=== PATIENT | male | born 1990 | race Caucasian/White ===

== ENCOUNTER → 2023-05-17 07:07 | Outpatient (REF) | payer BC, SELFPAY ==
[2023-05-17 07:42] LABS: % Eosinophils 3.5 % (0-6); % Immature Granulocytes 0.3 % (0-0.5); % Lymphocytes 31.1 % (20.5-51.1); % Monocytes 8.6 % (1.7-9.3); % Neutrophils 55.5 % (42.2-75.2); Absolute Basophils 0.1 10^3/uL (0-0.2); Absolute Eosinophils 0.3 10^3/uL (0-0.7); Absolute Lymphocytes 2.2 10^3/uL (1.2-3.4); Absolute Monocytes 0.6 10^3/uL (0.1-0.6); Absolute Neutrophils 3.9 10^3/uL (1.4-6.5); Hematocrit 43.2 % (39.0-52.0); Hemoglobin 14.9 g/dL (13.0-18.0); Mean Corp Hgb Conc. 34.5 g/dL (33.0-37.0); Mean Corpuscular Volume 84.2 fL (80.0-94.0); Mean Platelet Volume 10.6 fL (7.4-10.4); Nucleated Red Blood Cells % 0 % (-); Platelet Count 224 10^3/uL (130-400); Red Blood Cell Count 5.13 10^6/uL (4.70-6.10); Red Cell Dist. Width 12.6 % (11.5-14.5); White Blood Cell Count 7.1 10^3/uL (4.8-10.8)
[2023-05-17 10:50] LABS: ALT (SGPT) 23 U/L (0-50); AST (SGOT) 25 U/L (17-59); Albumin 4.1 g/dl (3.5-5.0); Alkaline Phosphatase 52 U/L (38-126); Blood Urea Nitrogen 17 mg/dl (9-20); Calcium 9.7 mg/dl (8.4-10.2); Carbon Dioxide 25 mmol/L (22-30); Chloride 103 mmol/L (98-107); Glucose 100 mg/dl (70-99); HDL Cholesterol 68 mg/dl; LDL Cholesterol, Calculated 75 mg/dl; Potassium 4.3 mmol/L (3.5-5.1); Sodium 139 mmol/L (135-145); Total Bilirubin 0.8 mg/dl (0.2-1.3); Total Cholesterol 162 mg/dl (50-199); Triglyceride 95 mg/dl (10-149); Very Low Density Lipoprotein 19 mg/dl (0-30); eGFR > 60.00
== END ==
LOC: REG 07:07
PROVIDERS: ATTENDING PHYSICIAN Family Medicine
DX: Z00.00 Encounter for general adult medical examination without abnormal findings (principal); Z13.0 Encounter for screening for diseases of the blood and blood-forming organs and certain disorders involving the immune mechanism; Z13.220 Encounter for screening for lipoid disorders
CPT/HCPCS: 36415; 80053; 80061; 85025

== ENCOUNTER 2024-01-06 22:14 | Inpatient (IN) | payer BC, SELFPAY ==
[2024-01-06 16:20] VITALS: BP 167/88
[2024-01-06 16:49] LABS: % Basophils 0.6 % (0-2); % Eosinophils 1.8 % (0-6); % Immature Granulocytes 0.3 % (0-0.5); % Lymphocytes 16.2 % (20.5-51.1); % Monocytes 9.4 % (1.7-9.3); % Neutrophils 71.7 % (42.2-75.2); Absolute Basophils 0.1 10^3/uL (0-0.2); Absolute Eosinophils 0.2 10^3/uL (0-0.7); Absolute Lymphocytes 1.5 10^3/uL (1.2-3.4); Absolute Monocytes 0.8 10^3/uL (0.1-0.6); Absolute Neutrophils 6.4 10^3/uL (1.4-6.5); Hematocrit 40.1 % (39.0-52.0); Hemoglobin 13.7 g/dL (13.0-18.0); Mean Corp Hgb Conc. 34.2 g/dL (33.0-37.0); Mean Corpuscular Hgb 28.5 pg (27.0-31.0); Mean Corpuscular Volume 83.4 fL (80.0-94.0); Mean Platelet Volume 10.5 fL (7.4-10.4); Nucleated Red Blood Cells % 0 % (-); Platelet Count 202 10^3/uL (130-400); Red Blood Cell Count 4.81 10^6/uL (4.70-6.10); Red Cell Dist. Width 12.7 % (11.5-14.5); White Blood Cell Count 8.9 10^3/uL (4.8-10.8)
[2024-01-06 16:50] LABS: Urine Albumin 1+ (Neg - Trace); Urine Bilirubin Negative (Negative); Urine Character Clear (Clear); Urine Color Yellow; Urine Glucose Negative (Negative); Urine Ketone Negative (Negative); Urine Leukocyte Negative (Negative); Urine Nitrite Negative (Negative); Urine Occult Blood 1+ (Negative); Urine Urobilinogen Negative (Neg - 1+)
[2024-01-06 16:58] LABS: ALT (SGPT) 25 U/L (0-50); AST (SGOT) 23 U/L (17-59); Albumin 4.5 g/dl (3.5-5.0); Alkaline Phosphatase 59 U/L (38-126); Blood Urea Nitrogen 42 mg/dl (9-20); Calcium 9.2 mg/dl (8.4-10.2); Carbon Dioxide 21 mmol/L (22-30); Chloride 107 mmol/L (98-107); Glucose 98 mg/dl (70-99); Potassium 4.1 mmol/L (3.5-5.1); Sodium 142 mmol/L (135-145); Total Bilirubin 0.5 mg/dl (0.2-1.3); Total Protein 7.2 g/dl (6.3-8.2); eGFR 26.93
--- NOTE | 2024-01-06 17:14 | ED.GENMED ---
History of Present Illness
General
Chief Complaint: Back Pain
Source: patient
Exam Limitations: none
Time Seen by Provider: 01/06/24 17:05
History of Present Illness
History of Present Illness:
See MDM
Past History
Past History
ED Past Medical History: None
ED Past Surgical History: None
Social History
Tobacco: Non-smoker
Alcohol: None
Phy Exam
Physical Exam
Physical Exam:
See MDM
Course
Orders/Labs/Results
Orders:
Orders
01/06/24 16:33
CMP [Comprehensive Metabolic Panel] Urgent
Complete Blood Count/With Diff Urgent
Creatine Phosphokinase Urgent
Comment: ADD ON
Urinalysis Reflex To Culture Urgent
Date Specimen was Collected: 01/06/24
Time Specimen was Collected: 16:25
Urine Microscopic Reflex Cult Urgent
01/06/24 17:13
Add On- LAB Urgent
Tests Added?: CPK
0.9% Sodium Chloride 1000 ml [Nss] 1,000 ml IV BOLUS
01/06/24 17:14
CT Abd/pel Without Iv Or Oral Urgent
Comment:
Reason For Exam: b/l flank pain
Abnormal Lab Results
01/06/24
16:33
MPV 10.5 H fL
(7.4-10.4)
Absolute Monos (auto) 0.8 H 10^3/uL
(0.1-0.6)
Lymphocytes % 16.2 L %
(20.5-51.1)
Monocytes % 9.4 H %
(1.7-9.3)
Carbon Dioxide 21 L mmol/L
(22-30)
BUN 42 H mg/dl
(9-20)
Creatinine 3.0 H mg/dL
(0.7-1.3)
Ur Occult Blood Reflex 1+ A
(Negative)
Urine RBC 7-10 A /HPF
(0-2)
Urine Bacteria (Reflex) Few A
(Negative)
Urine Albumin (Reflex) 1+ A
(Neg - Trace)
01/06/24 16:33
01/06/24 16:33
Vital Signs
Initial and Last Documented VS:
Initial Vital Signs
Temp Pulse Resp BP Pulse Ox
98.0 F 72 18 167/88 100
01/06/24 16:20 01/06/24 16:20 01/06/24 16:20 01/06/24 16:20 01/06/24 16:20
Last Documented Vital Signs
Temp Pulse Resp BP Pulse Ox
98.0 F 72 18 154/79 98
01/06/24 16:20 01/06/24 16:20 01/06/24 16:20 01/06/24 19:00 01/06/24 19:00
MDM/Problems Addressed
Differential Diagnosis Includes:
HPI and MDM Narrative:
33-year-old male presenting with bilateral lower back pain for the past week or so. 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 He has been doing stretches at home with no real relief. Patient has noticed that the water in
the toilet when he urinates has more bubbles in it. He denies any bubbling of his urine as it is coming out of his penis. He denies fevers or pain with urination.
On exam, patient does have mild muscle tenderness to his bilateral lumbar sacral area. No rash or skin changes noted. I discussed my concern with his blood work indicating elevated creatinine. Upon further questioning, patient did have increased
physical exercise recently and he has been more thirsty than normal. We discussed the likelihood of rhabdomyolysis. He does have mild hematuria but this is likely haptoglobin. Will obtain CT stone search and will start IV fluids and obtain CPK
Physical exam
General: Well appearing and non-toxic
HEENT: protecting airway
Neck: appears supple
CV: No evidence of cyanosis
Resp: No accessory muscle use
Abd: Non-distended. No significant abdominal tenderness
Back: Mild lumbosacral tenderness bilaterally
Extremities: No deformities
Neuro: alert
Psych: Normal affect
Skin: Intact
Problems Addressed including Acute and Chronic Conditions affecting care:
1. Low back pain
Acuity: acute
Prognosis: stable
Details: Given the elevated creatinine, likely in the setting of rhabdomyolysis. Will add on CPK and start IV fluids
Updates
6:10 PM I updated the patient in regards to her normal CPK. Will continue with plan with CT to rule out bilateral obstructing kidney stones
CT negative for obstructive uropathy. Given the lab abnormalities, will continue IV fluids and admit
Differential Diagnosis (but not limited to): Kidney stone, rhabdomyolysis, muscle strain
Testing considered: CT with IV contrast but GFR is low
Drug therapy (if applicable): OTC meds, please see d/c instruction regarding Rx drugs
Amount and/or Complexity of Data Reviewed
Clinical info obtained from: Patient
External data reviewed: N/A
Labs I independently reviewed (but not limited to): elevated creatinine
Radiology: The CT scan was personally and independently reviewed. In addition, official CT report reviewed.
Pulse Ox: not hypoxic
EKG independently reviewed: N/A
Credit Officer: N/A
Critical Care: N/A
Risk of Complication:
Social Determinants of health: Good social support
Discussed with other providers: Hospitalist
Escalation of Care includes Admit/Obs: Given the lab abnormalities, will continue IV fluids and admit
Occasional wrong word or 'sound a like' substitutions may have occurred due to the inherent limitations of voice recognition software. Read the chart carefully and recognize, using context, where substitutions have occurred.
*Critical Care Note
Total Time (30-74mins, 75-104mins- exclusive of procedures): Not Applicable
ED Attending Note
-
Portions of this chart may have been created with voice recognition software.� Occasional wrong word or��sound alike� substitutions may have occurred due to the inherent limitations of voice recognition software.
Discharge Plan
Departure
Patient Disposition: Admit
Date of Disposition: 01/06/24
Time of Disposition: 19:41
Admit to: Med/Surg
Presentation/result/management discussed w/ accepting MD/DO: Hospitalist
Discharge Problem:
Hematuria, Creatinine elevation
Referrals:
Mela Musa MD [Family Provider] -
Interventions
Interventions:
*Risk Screen - Suicide Last Done: 01/06/24 16:24
*General Assessment Last Done: 01/06/24 17:25
*Neglect/Abuse Screening Last Done: 01/06/24 16:24
*ED COVID-19 Vaccine History Last Done: 01/06/24 17:22
ED-Musculoskeletal Assessment Last Done: 01/06/24 17:31
Discharge Date and Time
Print Language: KINYARWANDA
[2024-01-06] MEDS: NSS 1000 IV ×2 (17:27→22:54)
[2024-01-06 17:28] LABS: Creatine Phosphokinase 106 U/L (55-170)
[2024-01-06 17:30] VITALS: BP 164/80
[2024-01-06 17:38] LABS: Urine Bacteria Few (Negative); Urine Mucus Few
[2024-01-06 18:00] VITALS: BP 162/82
[2024-01-06 19:00] VITALS: BP 154/79
--- NOTE | 2024-01-06 20:18 | HPS.HSE ---
Family Physician
-
Family Physician: Mela Musa MD
Chief Complaint
-
Back Pain
History of Present Illness
Patient is a 33y M with PMH significant for GERD who presents to ED complaining of back pain. Patient states that he started with pain in the mid back - bilaterally - about 6 days ago. No specific injury or trauma. He is very active. Works as
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 He felt that his discomfort was musculoskeletal and used heat, NSAIDs, rest, etc in attempt to improve without success. He noted development of mild nausea and 'frothy'
appearing urine. No bloody urine, fevers / chills. He denies dysuria or frequency.
Patient states that he has been taking ibuprofen 600mg about 3 times daily for the past several days.
He denies any other new medications, supplements, etc. No new exercise regimens, physical activity, etc.
Patient denies any prior history of similar symptoms.
Patient states that his son was recently ill with double-ill infection. He himself has had no recent URI / cold symptoms. No other known sick contacts.
Medical History
Past Medical History
Past Medical History: Reports Other
Additional Past Medical History:
GERD
Depression
Past Surgical History: Reports Other
Additional Past Surgical History:
T&A
Social History
Tobacco: Non-smoker
Alcohol: None
Drug: None
Family History
Family History: Other (Mother: Breast Cancer Father: HTN PGF: Prostate Cancer)
Allergies / Home Medications
Allergies reflects when Allergies were last updated in [facility].
Home Medications with original date entered in [facility]
Allergy/Medication List:
Allergies
Allergy/AdvReac Type Severity Reaction Status Date / Time
[facility]faclor [[facility] Allergy Unknown Unknown Verified 01/06/24 16:21
sulfamethoxazole Allergy Unknown Unknown Verified 01/06/24 16:21
[From Bactrim]
trimethoprim [From Bactrim] Allergy Unknown Unknown Verified 01/06/24 16:21
Home Medications
omeprazole 20 mg capsule,delayed release 20 mg PO DAILY 01/06/24
sertraline 25 mg tablet 25 mg PO DAILY 01/06/24
Review of Systems
-
History Source: Patient
A 12 point ROS was completed and negative except as noted: Yes
Constitutional: Denies Fever, Fatigue or Chills
EENT: Denies Sore Throat
Respiratory: Denies Cough or Trouble Breathing
Cardiac: Denies Chest Pain or Palpitations
Abdomen/GI: Reports Abdominal Pain and Nausea; Denies Vomiting, Diarrhea, Constipated, Bloody Stools, Black Stools or Anorexia
: Reports Flank Pain (bilateral) and Other (Frothy urine); Denies Dysuria, Frequency, Incontinence, Difficulty Voiding or Bleeding
Musculoskeletal: Reports Other (Back Pain); Denies Joint Pain
Neurological: Denies Dizzy, Headache, Weakness or Numbness
Psych: Denies Depression or Anxiety
Physical Exam
Vital Signs
Vital Signs
Temp Pulse Resp BP Pulse Ox
98.0 F 72 18 154/79 98
01/06/24 16:20 01/06/24 16:20 01/06/24 16:20 01/06/24 19:00 01/06/24 19:00
Physical Exam
General: Other (33y M in no acute distress.)
HEENT: Moist mucous membranes
Respiratory: Clear; No Wheezes, Rales or Rhonchi
Cardiac: S1/S2 and Regular Rhythm; No Murmur
GI: Soft, Non Tender, Non Distended and Normal Bowel Sounds
Musculoskeletal: No Clubbing, No Cyanosis, No Edema and Other (Mild bilateral CVAT. No tenderness over spine. No significant tenderness / spasm appreciated over paraspinal columns.)
Neuro: AO x 3
Laboratory Results
-
01/06/24 16:33
01/06/24 16:33
Laboratory Results
Total Bilirubin 0.5 mg/dl (0.2-1.3) 01/06/24 16:33
AST 23 U/L (17-59) 01/06/24 16:33
ALT 25 U/L (0-50) 01/06/24 16:33
Alkaline Phosphatase 59 U/L (38-126) 01/06/24 16:33
Impression/Plan
-
A/P: Patient is a 33y M with PMH significant for GERD who presents to ED complaining of back pain x 6 days.
ЮЛИЯ
- Admit for further evaluation and treatment.
- SCr = 3 compared to known baseline of 0.9.
- CT without evidence of stone, obstruction, pyelo, etc.
- UA with only minimal RBCs. CPK level normal.
- Tenderness is bilateral and seems muscular in origin.
- LDH is normal making vascular insult unlikely.
- Suspect ЮЛИЯ secondary to NSAID use x several days.
- Hold further ibuprofen.
- IVFs overnight.
- Follow for improvement in renal function.
- Nephrology evaluation if no improvement in SCr.
Back Pain
- Seems muscular in nature given location, duration, etc.
- Hold further NSAIDs.
- Application of heat, stretching, etc.
- Monitor for any new / worsening symptoms.
GERD
- Stable. Hold PPI for now given ЮЛИЯ.
Depression
- Stable. Continue sertraline.
DVT Prophylaxis: Subcut Heparin
Code Status: Full
[2024-01-06 20:36] LABS: LDH 158 U/L (120-246)
[2024-01-06 22:23] VITALS: BP 167/85; BMI 30.1
--- NOTE | 2024-01-06 23:38 | PTCARENOTE ---
Pt admitted to [facility] from ED via stretcher at approximately 2230. Pt was able to ambulate into room. Pt AAOx3. VSS. Pt oriented to unit and call pierce within reach.
[2024-01-07 05:07] LABS: Hemoglobin 12.6 g/dL (13.0-18.0); Mean Corp Hgb Conc. 34.1 g/dL (33.0-37.0); Mean Corpuscular Hgb 29.6 pg (27.0-31.0); Mean Corpuscular Volume 87.1 fL (80.0-94.0); Platelet Count 160 10^3/uL (130-400); Red Blood Cell Count 4.25 10^6/uL (4.70-6.10); Red Cell Dist. Width 12.7 % (11.5-14.5); White Blood Cell Count 6.4 10^3/uL (4.8-10.8)
[2024-01-07 05:09] LABS: Blood Urea Nitrogen 37 mg/dl (9-20); Calcium 9.1 mg/dl (8.4-10.2); Carbon Dioxide 21 mmol/L (22-30); Chloride 112 mmol/L (98-107); Estimated Creatinine Clearance 42 ml/min; Glucose 103 mg/dl (70-99); Potassium 4.9 mmol/L (3.5-5.1); Sodium 143 mmol/L (135-145); eGFR 29.26
[2024-01-07] MEDS: NSS 1000 IV ×3 (05:44→18:44)
[2024-01-07 07:00] VITALS: BP 154/86
[2024-01-07] MEDS: ZOLOFT 25 MG PO (09:37)
--- NOTE | 2024-01-07 10:13 | W.PN.HOSP.TC ---
Today's Communication/Plan
-
Nephrology consult
CRP, ESR
Spot urine protein/creatinine ratio
Assessment / Plan
Assessment / Plan
Gen-AAOx3, NAD
HEENT-NC, AT, anicteric, clear oral mm
Neck-supple
CV-reg, no M, +S1/S2
Lungs-clear B/L
Abd-soft, NT, ND
Ext-no edema
Musculoskeletal-no cyanosis, clubbing
Skin-warm and dry
Neuro-grossly non-focal
Psych-calm, cooperative
ЮЛИЯ -unclear etiology. Urinalysis abnormal with RBCs and albumin. Check spot urine protein creatinine ratio, ESR, CRP. Consult nephrology. He was on NSAIDs for 5 or 6 days prior to admission.
CT abdomen/pelvis without hydronephrosis or nephrolithiasis. Hepatomegaly noted. LFTs and CPK normal.
Nongap metabolic acidosis noted.
Back pain -likely musculoskeletal in nature. Improved.
GERD
Depression
full code
Anticipated Discharge: > 48 hours
Subjective/Interval History
-
Date of Service: January 07, 2024
Patient seen and examined. Back pain improved. No other complaints.
Objective Data
-
Labs:
Laboratory Results
01/07/24
04:20
WBC 6.4
Hgb 12.6 L
Hct 37.0 L
Plt Count 160 D
Sodium 143
Potassium 4.9
Chloride 112 H
Carbon Dioxide 21 L
BUN 37 H
Creatinine 2.8 H
Glucose 103 H
Calcium 9.1
Vital Signs:
Vital Signs
Temp Pulse Resp BP Pulse Ox
98.3 F 59 18 154/86 99
01/07/24 07:00 01/07/24 07:00 01/07/24 07:00 01/07/24 07:00 01/07/24 07:00
I&O
01/06/24 01/07/24 01/08/24
06:59 06:59 06:59
Intake Total 960 / 960
Balance 960 / 960
Review of Systems
-
History Source: Patient
All other systems: Reviewed and negative
--- NOTE | 2024-01-07 10:35 | W.CON.NEPH ---
Consultation
-
Date/Time Consultation Requested: 01/07/2024 10:00 AM
Date/Time Consultation Performed: 01/07/2024 10:30 AM
Requesting Provider: Dr. Hooks
Performing Provider: Dr. Song
Reason for Consultation: Acute kidney
Medical History
-
Chief Complaint: Acute kidney injury
History of Present Illness:
Patient is a 33y M with PMH significant for GERD ( on PPI) and depression (on Sertraline) who presents to ED complaining of back pain. Patient states that he started with pain in the mid back - bilaterally - about 6 days ago. No specific injury
or trauma. He is very active. 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 He felt that his discomfort was musculoskeletal and used heat, NSAIDs, rest, etc in attempt to improve without success. He noted
development of mild nausea and 'frothy' appearing urine. No bloody urine, fevers / chills. He denies dysuria or frequency. On presentation his creatinine was 3 and nephrology was consulted for acute kidney injury.
Patient states that he has been taking ibuprofen 600mg about 3 times daily for the past several days.
He denies any other new medications, supplements, etc. No new exercise regimens, physical activity, etc.
Patient denies any prior history of similar symptoms.
Past Medical History
GERD
Depression
Social History
Tobacco: Non-Smoker
Alcohol: None
Drug: None
Family History
Father hypertension
No chronic kidney disease
Allergies / Home Medications
Allergy/AdvReac Type Severity Reaction Status Date / Time
cefaclor [From Ceclor] Allergy Unknown Unknown Verified 01/06/24 16:21
sulfamethoxazole Allergy Unknown Unknown Verified 01/06/24 16:21
[From Bactrim]
trimethoprim [From Bactrim] Allergy Unknown Unknown Verified 01/06/24 16:21
�Medication �Instructions �Recorded �Confirmed �Type
omeprazole 20 mg capsule,delayed 20 mg PO DAILY Gastrointestinal 01/06/24 01/06/24 History
release Issue
sertraline 25 mg tablet 25 mg PO DAILY Mental 01/06/24 01/06/24 History
Health/Anxiety
Review of Systems
-
History Source: Patient
All other systems: Negative unless noted
Abdomen/GI: Nausea
: Other (Frothy urine)
Musculoskeletal: Other (Back pain)
Physical Exam
Vital Signs
Vital Signs
Temp Pulse Resp BP Pulse Ox
98.3 F 59 18 154/86 99
01/07/24 07:00 01/07/24 07:00 01/07/24 07:00 01/07/24 07:00 01/07/24 07:00
Lab Results
01/07/24 04:20
01/07/24 04:20
WBC 6.4 10^3/uL (4.8-10.8) 01/07/24 04:20
RBC 4.25 10^6/uL (4.70-6.10) L 01/07/24 04:20
Hgb 12.6 g/dL (13.0-18.0) L 01/07/24 04:20
Hct 37.0 % (39.0-52.0) L 01/07/24 04:20
Plt Count 160 10^3/uL (130-400) D 01/07/24 04:20
Sodium 143 mmol/L (135-145) 01/07/24 04:20
Potassium 4.9 mmol/L (3.5-5.1) 01/07/24 04:20
Chloride 112 mmol/L (98-107) H 01/07/24 04:20
Carbon Dioxide 21 mmol/L (22-30) L 01/07/24 04:20
BUN 37 mg/dl (9-20) H 01/07/24 04:20
Creatinine 2.8 mg/dL (0.7-1.3) H 01/07/24 04:20
eGFR 29.26 01/07/24 04:20
Glucose 103 mg/dl (70-99) H 01/07/24 04:20
Calcium 9.1 mg/dl (8.4-10.2) 01/07/24 04:20
Albumin 4.5 g/dl (3.5-5.0) 01/06/24 16:33
Physical Exam
General: AOx3, Nontoxic , NAD
HEENT: PERRL, EOMI, Anicteric, Conjunctivae Clear, Ear/Nose Intact, Hearing Normal, Oropharynx Clear/Moist, Dentition Intact, Facial Symmetry, Neck Supple, Neck: Trachea Midline, No JVD and No Thyromegaly, no Bruits
Respiratory: Clear to auscultation bilaterally with normal lung exersion
Cardiac: S1/S2 and Regular Rate/Rhythm
Breast: Deferred by me
Abdomen: Soft, Nontender, Nondistended, Normal Bowel Sounds and No Hepatosplenomegaly
Rectal: Deferred by Provider
Genito-urinary: No Costovertebral Tenderness
Extremities: No Clubbing, No Cyanosis and No Edema
Skin: No Rash or open lesions
Neuro: Nonfocal/Grossly Intact, CN II-XII (Intact) and Strength (Musculoskeletal exam 5 out of 5 both upper and lower extremities)
Hematologic/Lymphatic: No Cervical Lymphadenopathy, No Submandibular Lymphadenopathy and No Supraclavicular Lymphadenopathy
Psych: Mood/afflect pleasant, Insight/judgement good and Appropriate
Vascular: plus 2 pedal and radial pulses
Data Reviewed
-
CT Scan: Report Reviewed by me (No obstructive uropathy normal kidney sizes)
Labs: Labs Reviewed by me (BMP CBC urinalysis, CPK, )
Old Records: Reviewed (Creatinine 0.9 from 05/17/2023)
Assessment/Plan
-
Impression:
Acute kidney injury
Presentation with back pain
Proteinuria microhematuria
Depression
GERD
Plan:
ЮЛИЯ:
-New workup, imaging studies without obstructive findings
-Quantitate proteinuria with urine protein to creatinine ratio
-Check serological workup given microhematuria and proteinuria
-With hold further NSAIDs
-Check urine eosinophils as patient is on proton pump inhibitor (concern for drug induced AIN)
-Can continue isotonic saline for now
[2024-01-07 11:02] LABS: Erythrocyte Sed Rate 17 mm/hour (0-20)
[2024-01-07 12:20] LABS: Uric Acid 6.8 mg/dl (3.5-8.5)
[2024-01-07 14:19] LABS: Body Fluid for Eosinophils 1%
[2024-01-07 14:43] LABS: Protein/creatinine Ratio 0.8; Urine Protein 52 mg/dl
[2024-01-07 15:00] VITALS: BP 159/88
--- NOTE | 2024-01-07 16:14 | CM ---
met with patient at bedside.patient lives with his and son in an apt with an elevator.his bed and bath are on one level.he amb i and is I with his adl. he has never had a vn or been to ip rehab
PCP: dr bailey jaimes with [facility] PHARMACY: [facility] in [place]
PMH: depression,gerd,back pain -takes ibuprofen
patient is adm with ЮЛИЯ. cr is 2.8,had ct scan,ivf nss 150cc/hr,holdiong nsaids,neph cs.Patient is totally I.Plan:home with no needs.
[2024-01-07 23:18] VITALS: BP 143/79
[2024-01-08] MEDS: NSS 1000 IV ×2 (01:01→09:55)
[2024-01-08 06:57] LABS: % Basophils 0.6 % (0-2); % Eosinophils 0.6 % (0-6); % Immature Granulocytes 0.4 % (0-0.5); % Lymphocytes 12.4 % (20.5-51.1); % Monocytes 14.7 % (1.7-9.3); % Neutrophils 71.3 % (42.2-75.2); Absolute Lymphocytes 0.6 10^3/uL (1.2-3.4); Absolute Monocytes 0.8 10^3/uL (0.1-0.6); Absolute Neutrophils 3.6 10^3/uL (1.4-6.5); Hematocrit 35.4 % (39.0-52.0); Mean Corp Hgb Conc. 33.9 g/dL (33.0-37.0); Mean Corpuscular Hgb 28.6 pg (27.0-31.0); Mean Corpuscular Volume 84.5 fL (80.0-94.0); Mean Platelet Volume 11.4 fL (7.4-10.4); Nucleated Red Blood Cells % 0 % (-); Platelet Count 159 10^3/uL (130-400); Red Blood Cell Count 4.19 10^6/uL (4.70-6.10); Red Cell Dist. Width 12.7 % (11.5-14.5); White Blood Cell Count 5.1 10^3/uL (4.8-10.8)
[2024-01-08 07:21] VITALS: BP 170/91
[2024-01-08 07:24] LABS: ALT (SGPT) 21 U/L (0-50); AST (SGOT) 20 U/L (17-59); Albumin 3.6 g/dl (3.5-5.0); Alkaline Phosphatase 43 U/L (38-126); Blood Urea Nitrogen 24 mg/dl (9-20); Calcium 9.1 mg/dl (8.4-10.2); Carbon Dioxide 19 mmol/L (22-30); Chloride 110 mmol/L (98-107); Estimated Creatinine Clearance 55 ml/min; Glucose 103 mg/dl (70-99); Potassium 4.8 mmol/L (3.5-5.1); Sodium 142 mmol/L (135-145); Total Bilirubin 0.4 mg/dl (0.2-1.3); Total Protein 5.9 g/dl (6.3-8.2); eGFR 41.32
[2024-01-08 07:29] LABS: Complement C3 129 mg/dl (88-165)
[2024-01-08] MEDS: ZOLOFT 25 MG PO (07:32)
--- NOTE | 2024-01-08 07:53 | W.PN.HOSP.TC ---
Today's Communication/Plan
-
If creatinine continues to improve, can discharge tomorrow, as per nephrology
Patient's back pain has improved
Assessment / Plan
Assessment / Plan
Physical Exam
Gen-AAOx3, NAD
HEENT-NC, AT, anicteric, clear oral mm
Neck-supple
CV-reg, no M, +S1/S2
Lungs-clear B/L
Abd-soft, NT, ND. positive bowel sounds.
Ext-no edema
Musculoskeletal-no cyanosis
Skin-warm and dry
Neuro-grossly non-focal
Psych-calm, cooperative
Assessment/Plan
Acute Kidney Injury - IMPROVING - unclear etiology. Urinalysis abnormal with RBCs and albumin.Consulted nephrology, appreciate their evaluation and recommendations. He was on NSAIDs for 5 or 6 days prior to admission. Hold NSAIDs and PPI.
CT abdomen/pelvis without hydronephrosis or nephrolithiasis. Hepatomegaly noted. LFTs and CPK normal.
Nongap metabolic acidosis noted.
Hypertension on 01/08/24 morning -- no history of hypertension reported
-Amlodipine 2.5 mg daily started; continue
-Continue low sodium diet
Back pain -likely musculoskeletal in nature. Improved.
GERD
Depression
full code
Anticipated Discharge: Within 24 hours
Subjective/Interval History
-
Date of Service: January 08, 2024
Patient was seen and examined. He denied any symptoms or complaints.
Objective Data
-
Labs:
Laboratory Results
01/08/24
06:12
WBC 5.1
Hgb 12.0 L
Hct 35.4 L
Plt Count 159
Sodium 142
Potassium 4.8
Chloride 110 H
Carbon Dioxide 19 L
BUN 24 H
Creatinine 2.1 H
Glucose 103 H
Calcium 9.1
Total Bilirubin 0.4
AST 20
ALT 21
Alkaline Phosphatase 43
Vital Signs:
Vital Signs
Temp Pulse Resp BP Pulse Ox
97.6 F 60 17 170/91 96
01/08/24 07:21 01/08/24 07:21 01/08/24 07:21 01/08/24 07:21 01/08/24 07:21
I&O
01/07/24 01/08/24 01/09/24
06:59 06:59 06:59
Intake Total 960 / 960 720 / 720
Balance 960 / 960 720 / 720
[2024-01-08 08:27] LABS: Anti Streptolysin Negative (Negative)
[2024-01-08] MEDS: NORVASC 2.5 MG PO (09:21)
[2024-01-08 11:21] VITALS: BP 172/77
--- NOTE | 2024-01-08 12:02 | W.PN.NEPH.PH ---
Addendum entered and electronically signed by Araceli Redd MD 01/08/24 12:06:
monitor mild met acidosis
Original Note:
Today's Communication / Plan
-
wean off IVF
Assessment/Plan
-
Impression:
Acute kidney injury
Presentation with back pain
Proteinuria microhematuria
Depression
GERD
Plan:
ЮЛИЯ: highly suspect AIN from NSAIDs, cont to hold PPI too, U eosinophils +ve
-New workup, imaging studies without obstructive findings
-Quantitate proteinuria with urine protein to creatinine ratio, 800mg /gm of cr
pending serological workup given microhematuria and proteinuria
-With hold further NSAIDs
wean off IVF today
agree with low dose Amlodipine for high BPs and GARCIA
if cr cont to improve likely d.c tomorrow and f/u with nephro out pt
d/w pt
-
-
Date of Service: January 08, 2024
CC / HPI / ROS
-
Chief Complaint:
ЮЛИЯ
History of Present Illness:
cr improving to 2.1
BP are high
no fever
Review of Systems:
no cp or sob
has GARCIA today
otherwise feels well
Labs
-
Labs:
WBC 5.1 10^3/uL (4.8-10.8) 01/08/24 06:12
RBC 4.19 10^6/uL (4.70-6.10) L 01/08/24 06:12
Hgb 12.0 g/dL (13.0-18.0) L 01/08/24 06:12
Hct 35.4 % (39.0-52.0) L 01/08/24 06:12
Plt Count 159 10^3/uL (130-400) 01/08/24 06:12
Sodium 142 mmol/L (135-145) 01/08/24 06:12
Potassium 4.8 mmol/L (3.5-5.1) 01/08/24 06:12
Chloride 110 mmol/L (98-107) H 01/08/24 06:12
Carbon Dioxide 19 mmol/L (22-30) L 01/08/24 06:12
BUN 24 mg/dl (9-20) H 01/08/24 06:12
Creatinine 2.1 mg/dL (0.7-1.3) H 01/08/24 06:12
eGFR 41.32 01/08/24 06:12
Glucose 103 mg/dl (70-99) H 01/08/24 06:12
Calcium 9.1 mg/dl (8.4-10.2) 01/08/24 06:12
Albumin 3.6 g/dl (3.5-5.0) 01/08/24 06:12
Physical Exam
-
Vital Signs:
Vital Signs
Temp Pulse Resp BP Pulse Ox
97.6 F 60 17 172/77 96
01/08/24 07:21 01/08/24 07:21 01/08/24 07:21 01/08/24 11:21 01/08/24 07:21
Cardiovascular:: Regular rate and rhythm
Respiratory:: Bilateral: CTA
Lung Excursion:: Normal
Abdomen:: Nontender and Soft
Extremity Edema:: None: Bilateral:
Smith Catheter: No
[2024-01-08 13:10] VITALS: BP 170/84
[2024-01-08] MEDS: TYLENOL 650 MG PO ×2 (13:15→19:35)
[2024-01-08 15:31] VITALS: BP 131/74
[2024-01-08 22:20] VITALS: BP 155/87
[2024-01-09 07:14] LABS: Hematocrit 35.6 % (39.0-52.0); Hemoglobin 12.4 g/dL (13.0-18.0); Mean Corp Hgb Conc. 34.8 g/dL (33.0-37.0); Mean Corpuscular Hgb 29.7 pg (27.0-31.0); Mean Corpuscular Volume 85.4 fL (80.0-94.0); Mean Platelet Volume 10.8 fL (7.4-10.4); Platelet Count 148 10^3/uL (130-400); Red Blood Cell Count 4.17 10^6/uL (4.70-6.10); Red Cell Dist. Width 12.8 % (11.5-14.5); White Blood Cell Count 4.9 10^3/uL (4.8-10.8)
[2024-01-09 07:18] VITALS: BP 171/94
[2024-01-09 07:21] LABS: Blood Urea Nitrogen 21 mg/dl (9-20); Calcium 9.1 mg/dl (8.4-10.2); Carbon Dioxide 22 mmol/L (22-30); Chloride 110 mmol/L (98-107); Estimated Creatinine Clearance 61 ml/min; Glucose 95 mg/dl (70-99); Magnesium 1.8 mg/dl (1.6-2.3); Potassium 4.8 mmol/L (3.5-5.1); Sodium 143 mmol/L (135-145)
[2024-01-09] MEDS: ZOLOFT 25 MG PO (07:58)
[2024-01-09] MEDS: NORVASC 2.5 MG PO (07:58)
[2024-01-09 09:28] LABS: Absolute Neutrophils -Man Diff 2.1 10^3/uL (1.4-6.5); Band Neutrophils 4 % (0-3); Normal RBC Morphology Yes; Platelets Checked Yes; Segmented Neutrophils 40 % (42-75)
[2024-01-09 09:29] LABS: Atypical Lymphocytes 11 %; Eosinophils 2 % (0-6); Lymphocytes 27 % (20-51); Monocytes 14 % (2-9); Myelocytes 2 % (-); Total Cells Counted 100
--- NOTE | 2024-01-09 13:49 | W.PN.HOSP.TC ---
Today's Communication/Plan
-
Discharge today
Assessment / Plan
Assessment / Plan
Physical Exam
Gen-AAOx3, NAD
HEENT-NC, AT
Neck-supple
CV-reg, no M, +S1/S2
Lungs-clear B/L
Abd-soft, NT, ND. positive bowel sounds.
Ext-no edema
Skin-warm and dry
Neuro-grossly non-focal
Psych-calm, cooperative
Assessment/Plan
Acute Kidney Injury - IMPROVING - unclear etiology. Urinalysis abnormal with RBCs and albumin.Consulted nephrology, appreciate their evaluation and recommendations. He was on NSAIDs for 5 or 6 days prior to admission. Hold NSAIDs and PPI.
CT abdomen/pelvis without hydronephrosis or nephrolithiasis. Hepatomegaly noted. Recheck BMP in 2 to 3 days. Follow-up with nephrology.
Hypertension on 01/08/24 morning -- no history of hypertension reported
-Amlodipine 2.5 mg daily started; continue
-Continue low sodium diet
Back pain -likely musculoskeletal in nature. Improved.
GERD
Depression
full code
More than 30 minutes spent in discharge including
Final examination of the patient
Summarizing hospital stay
Instructions for continuing care to all relevant caregivers
Preparation of discharge records, prescriptions, and referral forms
Total time spent (in minutes): 39
Anticipated Discharge: Today
Subjective/Interval History
-
Date of Service: January 09, 2024
Patient was seen and examined. He denied any new symptoms or complaints.
Objective Data
-
Labs:
Laboratory Results
01/09/24
06:33
WBC 4.9
Hgb 12.4 L
Hct 35.6 L
Plt Count 148
Sodium 143
Potassium 4.8
Chloride 110 H
Carbon Dioxide 22
BUN 21 H
Creatinine 1.9 H
Glucose 95
Calcium 9.1
Vital Signs:
Vital Signs
Temp Pulse Resp BP Pulse Ox
98.9 F 52 18 171/94 96
01/09/24 07:18 01/09/24 07:18 01/09/24 07:18 01/09/24 07:18 01/09/24 07:18
I&O
01/08/24 01/09/24 01/10/24
06:59 06:59 06:59
Intake Total 720 / 720 1230 / 1230
Balance 720 / 720 1230 / 1230
--- NOTE | 2024-01-09 13:51 | CM ---
Reviewed chart, patient functioning at baseline level of care. Will be able to go home no needs.
Plan: Case management will continue to follow and assist with discharge planning. Home when cleared.
[2024-01-09 15:05] LABS: ANA, IgG Reflex to HEp-2 None Detected (None Detected)
--- NOTE | 2024-01-09 15:21 | W.PN.NEPH.PH ---
Today's Communication / Plan
-
ok for d/c
Assessment/Plan
-
Impression:
Acute kidney injury
Presentation with back pain
Proteinuria microhematuria
Depression
GERD
Plan:
ЮЛИЯ: highly suspect AIN from NSAIDs, cont to hold PPI too, U eosinophils +ve
imaging studies without obstructive findings
-Quantitate proteinuria with urine protein to creatinine ratio, 800mg /gm of cr
pending serological workup given microhematuria and proteinuria
-With hold further NSAIDs
titrate Amlodipine for high BPs
ok for d/c today
BMP on Monday and f/u nephro
d/w pt
-
-
Date of Service: January 09, 2024
CC / HPI / ROS
-
Chief Complaint:
ЮЛИЯ
History of Present Illness:
cr improving to 1.9
BP are high
no fever
Review of Systems:
no cp or sob
otherwise feels well
Labs
-
Labs:
WBC 4.9 10^3/uL (4.8-10.8) 01/09/24 06:33
RBC 4.17 10^6/uL (4.70-6.10) L 01/09/24 06:33
Hgb 12.4 g/dL (13.0-18.0) L 01/09/24 06:33
Hct 35.6 % (39.0-52.0) L 01/09/24 06:33
Plt Count 148 10^3/uL (130-400) 01/09/24 06:33
Sodium 143 mmol/L (135-145) 01/09/24 06:33
Potassium 4.8 mmol/L (3.5-5.1) 01/09/24 06:33
Chloride 110 mmol/L (98-107) H 01/09/24 06:33
Carbon Dioxide 22 mmol/L (22-30) 01/09/24 06:33
BUN 21 mg/dl (9-20) H 01/09/24 06:33
Creatinine 1.9 mg/dL (0.7-1.3) H 01/09/24 06:33
eGFR 46.60 01/09/24 06:33
Glucose 95 mg/dl (70-99) 01/09/24 06:33
Calcium 9.1 mg/dl (8.4-10.2) 01/09/24 06:33
Albumin 3.6 g/dl (3.5-5.0) 01/08/24 06:12
Physical Exam
-
Vital Signs:
Vital Signs
Temp Pulse Resp BP Pulse Ox
98.9 F 52 18 171/94 96
01/09/24 07:18 01/09/24 07:18 01/09/24 07:18 01/09/24 07:18 01/09/24 07:18
Cardiovascular:: Regular rate and rhythm
Respiratory:: Bilateral: CTA
Lung Excursion:: Normal
Extremity Edema:: None: Bilateral:
Smith Catheter: No
Other Findings::
speech clear
grossly non focal
[2024-01-10 12:07] LABS: Alpha 1 Globulin 0.42 g/dL (0.19-0.46); Alpha 2 Globulin 0.83 g/dL (0.48-1.05); SPEP IFE Reflex Not Done; Total Protein-Electrophoresis 6.6 g/dL (6.3-8.2)
[2024-01-10 17:57] LABS: Myeloperoxidase Antibody 0 AU/mL (0-19); Serine Protease-3, IgG 18 AU/mL (0-19)
== END 2024-01-09 15:19 | disposition home or self-care (01) | DRG 683 ==
LOC: 3 WEST ACU 22:14
PROVIDERS: Emergency Medicine; Hospitalist; ADMITTING PHYSICIAN Hospitalist; ATTENDING PHYSICIAN Hospitalist; CONSULT PHYSICIAN Specialist; EMERGENCY PHYSICIAN Student in an Organized Health Care Education/Training Program; FAMILY PHYSICIAN Family Medicine
DX: N17.9 Acute kidney failure, unspecified (principal); E87.20 Acidosis, unspecified; I10 Essential (primary) hypertension; F32.A Depression, unspecified; R31.29 Other microscopic hematuria; F41.9 Anxiety disorder, unspecified; K21.9 Gastro-esophageal reflux disease without esophagitis; M54.9 Dorsalgia, unspecified; Z79.899 Other long term (current) drug therapy; Z88.1 Allergy status to other antibiotic agents; Z88.2 Allergy status to sulfonamides; Z82.49 Family history of ischemic heart disease and other diseases of the circulatory system
CPT/HCPCS: 74176; 80048; 80053; 81003; 81015; 81099; 82550; 82570; 83516; 83615; 83735; 84155; 84156; 84165; 84550; 85025; 85027; 85652; 86038; 86063; 86140; 86160; 93005; 96360; 99284

== ENCOUNTER → 2024-01-15 07:19 | Outpatient (REF) | payer BC, SELFPAY ==
[2024-01-15 08:55] LABS: Blood Urea Nitrogen 31 mg/dl (9-20); Calcium 10.1 mg/dl (8.4-10.2); Carbon Dioxide 26 mmol/L (22-30); Chloride 103 mmol/L (98-107); Glucose 93 mg/dl (70-99); Potassium 4.6 mmol/L (3.5-5.1); Sodium 143 mmol/L (135-145); eGFR > 60.00
== END ==
LOC: REG 07:19
PROVIDERS: ATTENDING PHYSICIAN Family Medicine
DX: N17.9 Acute kidney failure, unspecified (principal)
CPT/HCPCS: 36415; 80048

== ENCOUNTER → 2024-02-01 14:40 | Outpatient (REF) | payer BC, SELFPAY ==
[2024-02-01 16:01] LABS: Blood Urea Nitrogen 20 mg/dl (9-20); Calcium 9.7 mg/dl (8.4-10.2); Carbon Dioxide 26 mmol/L (22-30); Chloride 103 mmol/L (98-107); Glucose 91 mg/dl (70-99); Potassium 4.6 mmol/L (3.5-5.1); Sodium 141 mmol/L (135-145); eGFR > 60.00
== END ==
LOC: REG 14:40
PROVIDERS: ATTENDING PHYSICIAN Family Medicine
DX: N17.9 Acute kidney failure, unspecified (principal)
CPT/HCPCS: 36415; 80048

== ENCOUNTER → 2024-04-06 07:31 | Outpatient (REF) | payer BC, SELFPAY ==
[2024-04-06 08:52] LABS: Albumin 4.6 g/dl (3.5-5.0); Blood Urea Nitrogen 17 mg/dl (9-20); Calcium 9.8 mg/dl (8.4-10.2); Carbon Dioxide 28 mmol/L (22-30); Chloride 102 mmol/L (98-107); Glucose 94 mg/dl (70-99); Phosphorus 3.7 mg/dl (2.5-4.5); Potassium 4.3 mmol/L (3.5-5.1); Sodium 140 mmol/L (135-145); eGFR > 60.00
[2024-04-06 08:58] LABS: Urine Albumin Negative (Neg - Trace); Urine Bilirubin Negative (Negative); Urine Character Clear (Clear); Urine Color Yellow; Urine Glucose Negative (Negative); Urine Ketone Negative (Negative); Urine Leukocyte Negative (Negative); Urine Nitrite Negative (Negative); Urine Occult Blood Negative (Negative); Urine Urobilinogen Negative (Neg - 1+)
[2024-04-06 09:23] LABS: Urine Protein < 5 mg/dl
== END ==
LOC: REG 07:31
PROVIDERS: ATTENDING PHYSICIAN Internal Medicine; FAMILY PHYSICIAN Family Medicine
DX: N17.9 Acute kidney failure, unspecified (principal)
CPT/HCPCS: 36415; 80069; 81003; 82570; 84156

== ENCOUNTER → 2024-06-01 07:43 | Outpatient (REF) | payer BC, SELFPAY ==
[2024-06-01 08:13] LABS: % Basophils 0.9 % (0-2); % Eosinophils 4.3 % (0-6); % Immature Granulocytes 0.2 % (0-0.5); % Lymphocytes 37.4 % (20.5-51.1); % Neutrophils 48.2 % (42.2-75.2); Absolute Basophils 0.1 10^3/uL (0-0.2); Absolute Eosinophils 0.2 10^3/uL (0-0.7); Absolute Lymphocytes 2.1 10^3/uL (1.2-3.4); Absolute Monocytes 0.5 10^3/uL (0.1-0.6); Absolute Neutrophils 2.7 10^3/uL (1.4-6.5); Hematocrit 45.5 % (39.0-52.0); Hemoglobin 15.3 g/dL (13.0-18.0); Mean Corp Hgb Conc. 33.6 g/dL (33.0-37.0); Mean Corpuscular Hgb 28.9 pg (27.0-31.0); Mean Corpuscular Volume 85.8 fL (80.0-94.0); Mean Platelet Volume 10.5 fL (7.4-10.4); Nucleated Red Blood Cells % 0 % (-); Platelet Count 208 10^3/uL (130-400); Red Cell Dist. Width 12.5 % (11.5-14.5); White Blood Cell Count 5.6 10^3/uL (4.8-10.8)
[2024-06-01 08:45] LABS: ALT (SGPT) 23 U/L (0-50); AST (SGOT) 22 U/L (17-59); Albumin 4.3 g/dl (3.5-5.0); Alkaline Phosphatase 48 U/L (38-126); Blood Urea Nitrogen 16 mg/dl (9-20); Calcium 9.9 mg/dl (8.4-10.2); Carbon Dioxide 27 mmol/L (22-30); Chloride 106 mmol/L (98-107); Glucose 104 mg/dl (70-99); HDL Cholesterol 80 mg/dl; LDL Cholesterol, Calculated 102 mg/dl; Potassium 4.5 mmol/L (3.5-5.1); Sodium 139 mmol/L (135-145); Total Bilirubin 0.7 mg/dl (0.2-1.3); Total Cholesterol 197 mg/dl (50-199); Total Protein 6.9 g/dl (6.3-8.2); Triglyceride 75 mg/dl (10-149); Very Low Density Lipoprotein 15 mg/dl (0-30); eGFR > 60.00
[2024-06-01 09:26] LABS: Glycohemoglobin (HgbA1c) 5.4 % (4.0-5.6)
== END ==
LOC: REG 07:43
PROVIDERS: ATTENDING PHYSICIAN Family Medicine
DX: Z00.00 Encounter for general adult medical examination without abnormal findings (principal); Z13.0 Encounter for screening for diseases of the blood and blood-forming organs and certain disorders involving the immune mechanism; Z13.1 Encounter for screening for diabetes mellitus; R73.01 Impaired fasting glucose
CPT/HCPCS: 36415; 80053; 80061; 83036; 85025

== ENCOUNTER 2024-06-11 06:28 | Day surgery (SDC) | payer BC, SELFPAY | END 2024-06-11 13:47 | disposition home or self-care (01) | LOC: GI 06:28 | PROVIDERS: ATTENDING PHYSICIAN Internal Medicine Gastroenterology | DX: R12 Heartburn (principal); K31.89 Other diseases of stomach and duodenum; K20.0 Eosinophilic esophagitis | CPT/HCPCS: 43239; 88305 ==